=== PATIENT | male | born 1945 | race Caucasian/White ===

== ENCOUNTER → 2021-08-30 | Outpatient (CLI) | payer MEDICARE ==
[~2021-08-30] MED LIST: AUGMENTIN 875-1 EACH PO
== END ==
LOC: KOH-I 10:41
DX: F17.210 Nicotine dependence, cigarettes, uncomplicated (principal); R91.8 Other nonspecific abnormal finding of lung field
CPT/HCPCS: 71271

== ENCOUNTER → 2021-09-16 | Outpatient (CLI) | payer MEDICARE | LOC: EXRD 15:18 | DX: M54.2 Cervicalgia (principal); Z86.16 Personal history of COVID-19; N18.31 Chronic kidney disease, stage 3a; K11.9 Disease of salivary gland, unspecified; Q61.02 Congenital multiple renal cysts; K76.89 Other specified diseases of liver | CPT/HCPCS: 76536; 76775 ==

== ENCOUNTER 2022-01-17 02:11 | Emergency (ER) | payer MEDICARE ==
[2022-01-17 02:35] LABS: RED BLOOD COUNT 5.07 M/UL (4.20-5.50); WHITE BLOOD COUNT 8.9 K/UL (4.5-11.0)
[2022-01-17 03:07] LABS: BUN/CREATININE RATIO 30 (0-10)
== END 2022-01-17 08:53 | disposition short-term general hospital (02) ==
LOC: ER1 02:11
PROVIDERS: Emergency Medicine
DX: J44.1 Chronic obstructive pulmonary disease with (acute) exacerbation (principal); C14.0 Malignant neoplasm of pharynx, unspecified; I10 Essential (primary) hypertension; I48.91 Unspecified atrial fibrillation; Z20.822 Contact with and (suspected) exposure to COVID-19
CPT/HCPCS: 36600; 71045; 80053; 81001; 82550; 82553; 82803; 83605; 83735; 83880; 84100; 84484; 85025; 86140; 87040; 87070; 87086; 87205; 93005; 94664; 96365; 96366; 96375; 99285; J0456; J2930; J7030; U0002